=== PATIENT | female | born 1965 | race Caucasian/White ===

== ENCOUNTER 2017-04-17 12:19 | Observation (INO) | payer OTHER ==
[2017-04-17] MEDS ORDERED: GLUCAGON,HUMAN RECOMBINANT 1 MG VIAL ONE (14:08)
[2017-04-17] MEDS ORDERED: IOTHALAMATE MEG (CONRAY) 50 ML VIAL IV ONE (14:08)
--- NOTE | 2017-04-17 14:31 | PDHPUP ---
History & Physical Update H&P update statement: This history and physical update is based on an assessment of the patient which was completed after admission or registration (within 24 hours), but prior to the surgery/procedure.
--- NOTE | 2017-04-17 14:35 | PDANEPAE ---
ANE History of Present Illness 51 yo for ercp ANE Past Medical History - Cardiovascular History Hx Hypertension: Yes Hx Arrhythmias: No Hx Chest Pain: No Hx Coronary Artery / Peripheral Vascular Disease: No Hx CHF / Valvular Disease: No Hx Palpitations: No Cardiovascular History Comment: meds for Hypertension - Pulmonary History Hx COPD: No Hx Asthma/Reactive Airway Disease: No Hx Recent Upper Respiratory Infection: No Hx Oxygen in Use at Home: No Hx Sleep Apnea: Yes Sleep Apnea Screening Result - Last Documented: Positive Pulmonary History Comment: SUDHIR and uses a CPAP - Neurologic History Hx Cerebrovascular Accident: No Hx Seizures: No Hx Dementia: No - Endocrine History Hx Diabetes: Yes - Renal History Hx Renal Disorders: No - Liver History Hx Hepatic Disorders: No - Neurological & Psychiatric Hx Hx Neurological and Psychiatric Disorders: No - Cancer History Hx Cancer: No - Congenital Disorder History Hx Congenital Disorders: No - GI History Hx Gastrointestinal Disorders: Yes Gastrointestinal History Comment: c diff recent with 2 doses of medicine to treat. dilation of esophagus less than 5 years ago. GERD - Other Health History Other Health History: seasonal allergies - Surgical History Prior Surgeries: kidney stone removed 2001 ANE Review of Systems - Exercise capacity METS (RN): 4 METS ANE Patient History - Allergies Allergies/Adverse Reactions: erythromycin base Allergy (Verified 04/17/17 13:52) Vomiting metformin Allergy (Verified 04/17/17 14:19) Vomiting - Home Medications Home medications: home medication list seen and reviewed Home Medications: Aleve 220 MG (*) 2 tab PO DAILY 04/17/17 [Last Taken 04/16/17] Hyzaar 100-25 Tablet 1 tab PO DAILY 04/17/17 [Last Taken 04/15/17] Levothyroxine 75 mcg PO DAILY 04/17/17 [Last Taken 04/14/17] Metoprolol Tartrate 50 mg PO BID 04/17/17 [Last Taken 04/15/17] Multivitamin 1 tab PO DAILY 04/17/17 [Last Taken 04/14/17] Omeprazole 20 mg PO DAILY 04/17/17 [Last Taken 04/14/17] Simvastatin 10 mg PO DAILY 04/17/17 [Last Taken 04/14/17] Trulicity 1.5 mg SQ AD 04/17/17 [Last Taken 04/10/17] Zyrtec 1 tab PO DAILY 04/17/17 [Last Taken 04/14/17] metroNIDAZOLE 1 tab PO TID 04/17/17 [Last Taken 04/17/17 09:00] - NPO status NPO Since - Liquids (Date): 04/17/17 NPO Since - Liquids (Time): 09:00 NPO Since - Solids (Date): 04/17/17 NPO Since - Solids (Time): 09:00 - Smoking Hx Smoking Status: Never smoked - Family Anes Hx Family Hx Anesthesia Complications: none ANE Labs/Vital Signs - Vital Signs Blood Pressure: 122/78 Heart Rate: 81 Respiratory Rate: 14 O2 Sat (%): 92 Height: 5 ft 6 in Weight: 74.843 kg ANE Physical Exam - Airway Neck exam: FROM Mallampati Score: Class 2 Mouth exam: normal dental/mouth exam - Pulmonary Pulmonary: no respiratory distress - Cardiovascular Cardiovascular: regular rate and rhythym ANE Anesthesia Plan Anesthesia Plan: general endotracheal anesthesia
[2017-04-17] MEDS ORDERED: PROPOFOL/EMULSION 500 MG/50 ML BOTTLE IV ONE (14:43)
[2017-04-17] MEDS ORDERED: fentaNYL 100 MCG/2 ML INJ ONE (14:43)
[2017-04-17] MEDS ORDERED: REMIFENTANIL HCL 1 MG VIAL ONE (14:44)
--- NOTE | 2017-04-17 15:22 | POSTOPPROG ---
Post Op Note Date of Operation: 04/17/17 Surgeon: Morteza Coleman Anesthesia: GET(General Endotracheal) Pre-op Diagnosis: Obstructive jaundice Post-op Diagnosis: same Indication: same Procedure: ERCP/spinchterotomy/CBD sweepage Findings: Good drainage of CBD after procedure. No obvious filling defects Inf/Abcess present in the surg proc area at time of surgery?: No EBL: Minimal Complications: No immediate complications Specimen(s): none
[2017-04-17] MEDS ORDERED: fentaNYL 100 MCG/2 ML INJ IVP PRN (15:26)
[2017-04-17] MEDS ORDERED: NALOXONE HCL 0.4 MG/ML INJ IVP PRN (15:26)
[2017-04-17] MEDS ORDERED: ONDANSETRON 4 MG/2 ML VIAL IVP PRN ×2 (15:26→20:17)
[2017-04-17] MEDS ORDERED: LR 1,000 ML IV SCH (15:30)
--- NOTE | 2017-04-17 15:33 | POSTANESTH ---
Post Anesthetic Evaluation Cardiovascular Status: Normal, Stable Respiratory Status: Normal, Stable Level of Consciousness/Mental Status: Can Participate in Eval Pain Control: Adequate, Prn Tx Ordered Nausea/Vomiting Control: Adequate, Prn Tx Ordered
[2017-04-17] MEDS ORDERED: INSULIN REGULAR HUMAN 100 UNIT/ML ONE (16:26)
[2017-04-17] MEDS ORDERED: INSULIN REGULAR HUMAN 100 UNIT/ML SC ONE (16:45)
[2017-04-17] MEDS ORDERED: INDOMETHACIN 50 MG SUPP PR ONE (18:45)
[2017-04-17] MEDS ORDERED: HYDROmorphONE/DILAUDID 1 MG/ML SYR ONE (19:34)
[2017-04-17] MEDS: HYDROmorphONE/DILAUDID 1 MG/ML SYR IVP PRN ×3 (19:49→23:03)
[2017-04-17 19:53] VITALS: RESP 16
[2017-04-17] MEDS ORDERED: ACETAMINOPHEN 325 MG TAB PO PRN (20:17)
[2017-04-17] MEDS ORDERED: ONDANSETRON DISINTEGRATING 4 MG TAB PO PRN (20:17)
[2017-04-17] MEDS ORDERED: D50W 25 GM/50 ML SYR IVP PRN (20:19)
[2017-04-17] MEDS ORDERED: NS 1,000 ML IV ONE (20:20)
[2017-04-17] MEDS ORDERED: NS 1,000 ML IV SCH (20:30)
--- NOTE | 2017-04-17 21:01 | GHP ---
[f rep st] HISTORY AND PHYSICAL DATE OF ADMISSION: 04/17/2017 CHIEF COMPLAINT: Abdominal pain after ERCP. HISTORY OF PRESENT ILLNESS: This is a 51-year-old female who developed several different problems i n the last couple weeks. She returned from a trip to [place] a couple weeks ago and had an upper r espiratory tract infection for which she was given Augmentin. She then developed renita hematuria an d then following that, left flank pain and was diagnosed with a urinary tract infection and then giv en Cipro. At that time, she also underwent CT scanning on 04/12 which did not show any kidney stone s but did show a gallstone in the gallbladder. As of 3 or 4 days ago she complained of diarrhea and then was diagnosed with C. difficile colitis and started on Flagyl. She then developed jaundice. An ultrasound at that time showed a dilated common bile duct. She then saw Dr. Coelman this morning. He scheduled an ERCP this afternoon. This was accomplished and there was no obvious filling defec t but a sphincterotomy and sweeping were done. She then trialed a diet and had severe epigastric pa in an hour ago. This is better now with Dilaudid. She is complaining of some minimal pain. She de nies any nausea or vomiting. No chest pain or shortness of breath. REVIEW OF SYSTEMS: A 10-point review of systems was obtained and was negative. PAST MEDICAL HISTORY: 1. Type 2 diabetes. 2. Hypertension. 3. Previous left kidney stone. 4. Obstructive sleep apnea. 5. Hypothyroidism. MEDICATIONS: Reviewed. FAMILY HISTORY: Lung cancer in her father. Coronary artery disease in her mother. Charlton's ch pito in her paternal grandfather. SOCIAL HISTORY: No smoking or alcohol. PHYSICAL EXAMINATION: VITAL SIGNS: Afebrile, blood pressure is elevated at 188/100, heart rate 74, oxygen saturation is 97% on 2 L. GENERAL: The patient is well developed, no apparent distress. H EENT: Mildly icteric sclerae. Moist mucous membranes. NECK: Supple. No thyromegaly. LUNGS: Go od effort. Clear to auscultation bilaterally. CARDIOVASCULAR: Regular rate and rhythm. No murmur s, gallops. ABDOMEN: Positive bowel sounds. Soft. Mild epigastric tenderness. No rebound or gua rding. EXTREMITIES: No clubbing, cyanosis, or edema. SKIN: Without rash. Warm, dry, intact. GEORGE ROLOGIC: Alert and oriented x3. Moving all 4 extremities equally. PSYCH: Normal mood and affect. LABS: From 2 days ago shows a normal CBC but does show elevated total bilirubin of 6.6 with a conju gated at 5.6. AST 135, ALT 274, alkaline phosphatase elevated at 288. Creatinine is also elevated at 2.5. Glucose is elevated at 362. ASSESSMENT: A 51-year-old female being admitted post endoscopic retrograde cholangiopancreatography (ERCP) to rule out pancreatitis, who also has concomitant Clostridium difficile colitis and acute r enal failure. PLAN: 1. Rule out pancreatitis status post ERCP. Will get some blood work tonight. Will get a lipase to rule out pancreatitis. If this is normal could probably advance her diet tomorrow. 2. Acute renal failure. Will again check creatinine tonight and then again tomorrow. She will be given IV fluids overnight, perhaps with a little bit of a bolus. 3. Clostridium difficile colitis. The patient had been on Flagyl. Will give oral vancomycin while in the hospital. 4. Type 2 diabetes. Will check blood sugars with some sliding scale insulin. 5. Hypertension. I am going to hold her Hyzaar due to her acute renal failure. Continue metoprolo l. 6. Admission: Patient will be admitted under observation status. Case was discussed with Gastroen terologist. Records reviewed and summarized in the HPI. /[id number]/MODL
[2017-04-17] MEDS: VANCOMYCIN 125 MG/2.5 ML UDL PO SCH (21:26)
[2017-04-17 21:45] LABS: % IMMATURE GRANULYOCYTES 0.9 % (0.0-1.1); ABSOLUTE IMMATURE GRANULOCYTES 0.06 10^3/uL (0.00-0.10); ADD DIFF? NO; ADD MORPH? NO; ADD SCAN? NO; ATYPICAL LYMPHOCYTE FLAG 20 (0-99); FRAGMENT RBC FLAG 0 (0-99); HEMATOCRIT 40.5 % (38.0-47.0); HEMOGLOBIN 14.1 g/dL (12.6-16.3); LEFT SHIFT FLG 0 (0-99); LIPEMIA HEMOLYSIS FLAG 90 (0-99); MEAN CELL HEMOGLOBIN 32.5 pg (27.9-34.1); MEAN CELL HEMOGLOBIN CONCENTR. 34.8 g/dL (32.4-36.7); MEAN CELL VOLUME 93.3 fL (81.5-99.8); MEAN PLATELET VOLUME 10.5 fL (8.7-11.7); PLATELET CLUMPS FLAG 0 (0-99); PLATELET COUNT 244 10^3/uL (150-400); RED BLOOD CELL COUNT 4.34 10^6/uL (4.18-5.33); RED CELL DISTRIBUTION WIDTH 12.4 % (11.5-15.2)
[2017-04-17 21:58] LABS: ALANINE AMINOTRANSFERASE 209 IU/L (9-52); ALBUMIN 4.2 g/dL (3.5-5.0); ALKALINE PHOSPHATASE 306 IU/L (38-126); ANION GAP 18 mEq/L (8-16); ASPARTATE AMINOTRANSFERASE 127 IU/L (14-46); BILIRUBIN,TOTAL 6.8 mg/dL (0.1-1.4); CALCIUM 9.9 mg/dL (8.5-10.4); CARBON DIOXIDE 21 mEq/l (22-31); CHLORIDE 101 mEq/L (97-110); CREATININE 1.9 mg/dL (0.6-1.0); GLOMERULAR FILTRATION RATE 28; POTASSIUM 4.3 mEq/L (3.5-5.2); SODIUM 140 mEq/L (134-144); TOTAL PROTEIN 7.2 g/dL (6.3-8.2)
[2017-04-17 22:02] LABS: GLUCOSE 525 mg/dL (70-100)
[2017-04-17 22:16] LABS: BILIRUBIN-CONJUGATED 5.8 mg/dL (0.0-0.5)
[2017-04-17] MEDS: METOPROLOL SUCCINATE XR 50 MG TAB PO SCH (22:34)
[2017-04-17] MEDS ORDERED: INSULIN REGULAR HUMAN 100 UNIT/ML IVP ONE (23:00)
[2017-04-18] MEDS: VANCOMYCIN 125 MG/2.5 ML UDL PO SCH ×2 (05:26→13:00)
[2017-04-18] MEDS ORDERED: LEVOTHYROXINE 75 MCG TAB PO SCH (06:00)
[2017-04-18 06:29] LABS: ALANINE AMINOTRANSFERASE 188 IU/L (9-52); ALBUMIN 3.6 g/dL (3.5-5.0); ALKALINE PHOSPHATASE 261 IU/L (38-126); ANION GAP 14 mEq/L (8-16); ASPARTATE AMINOTRANSFERASE 113 IU/L (14-46); BILIRUBIN,TOTAL 6.3 mg/dL (0.1-1.4); BILIRUBIN-CONJUGATED 5.3 mg/dL (0.0-0.5); CALCIUM 9.1 mg/dL (8.5-10.4); CARBON DIOXIDE 21 mEq/l (22-31); CHLORIDE 108 mEq/L (97-110); CREATININE 1.8 mg/dL (0.6-1.0); GLOMERULAR FILTRATION RATE 29; GLUCOSE 353 mg/dL (70-100); SODIUM 143 mEq/L (134-144); TOTAL PROTEIN 6.4 g/dL (6.3-8.2)
[2017-04-18] MEDS: METOPROLOL SUCCINATE XR 50 MG TAB PO SCH (07:52)
[2017-04-18] MEDS: INSULIN LISPRO 100 UNIT/ML SC SCH ×2 (07:53→13:00)
--- NOTE | 2017-04-18 08:11 | SOAPPROG ---
SOAP Progress Note Assessment/Plan: Assessment: Admitted last night after developing sx suggestive of post-ERCP pancreatitis, although Lipase only minimally abnormal. She feels better this AM and LFTs marginally improved overnight. On Rx for C. diff. Blood sugars very high despite Trulicity therapy. Abdomen soft and non-tender today. I suspect she could go home on a diet advanced as tolerated but will need close follow up with her PCP for the multiple medical issues she has. I will call Dr. Quick to apprise him of her situation. Much thanks to Hospitalist team for their help last night. Plan: 04/18/17 08:08 Objective: Vital Signs Temp Pulse Resp BP Pulse Ox 36.7 C 73 16 152/90 H 97 04/18/17 07:42 04/18/17 07:42 04/18/17 07:42 04/18/17 07:42 04/18/17 07:42 Laboratory Results 04/17/17 21:30 04/18/17 05:50 04/17/17 04/18/17 04/19/17 05:59 05:59 05:59 Intake Total 3450 Output Total 0 Balance 3450 ICD10 Worksheet Patient Problems: Problems Problem Status Onset C. difficile diarrhea Acute ~04/15/17
[2017-04-18] MEDS ORDERED: CETIRIZINE 10 MG TAB PO SCH (09:00)
[2017-04-18] MEDS ORDERED: PANTOPRAZOLE SODIUM 40 MG TAB PO SCH (09:00)
--- NOTE | 2017-04-18 09:33 | GPN ---
[f rep st] PROCEDURE NOTE PROCEDURE PERFORMED: Endoscopic retrograde cholangiopancreatography with sphincterotomy and common bile duct sweepage. INDICATION: The patient is a 51-year-old female who has been having abdominal discomfort and then m ore recently a presentation of jaundice and pruritus. CT scan performed approximately 3 days ago sh owed a choledocholithiasis but no common bile duct abnormality. Ultrasound performed yesterday show ed the stone was known in the gallbladder and the bile duct had dilated to 10 mm. Lab work revealed a significant increase in total bilirubin to 6.6, AST to 134, ALT to 274, alk phos to 288. The con fluence of these findings suggested common bile duct obstruction from a choledocholithiasis. ERCP i s being performed to evaluate and treat. PROCEDURE: After proper consent was obtained, the patient placed under general anesthesia and place d in the swimmer's position. Video duodenoscope was introduced through the mouth, down the esophagus, into the stomach, past the pylorus into the duodenum. These structures appeared normal. The ampulla of Vater was identified. It was not obviously traumatized. A guidewire was placed in the common duct, and then cholangiogram was performed that showed a dilate d common duct approximately 9 mm. No obvious filling defect noted. However, there was no spontaneo us drainage of bile. A sphincterotomy was performed to approximately 10 mm. Using Seldinger technique, I switched over t o a 9-12 mm balloon extractor and swept the common bile duct 3 times, after which a good flow of marina e was noted. I did not see an obvious stone or any debris come out. Final cholangiogram showed no filling defects and good drainage of the common duct. At this point, instruments were removed. The patient tolerated the procedure well. No pancreatic d uct intubation or opacification was performed. The patient was transferred to Recovery in stable condition. RECOMMENDATIONS: The patient will be observed for 4 hours for any post-ERCP complications. If she is doing well, she may go home. Otherwise, I will keep her overnight. The patient will need followup blood work later this week to confirm improvement of LFTs and an offi ce visit to confirm improvement of symptoms. Copy requested to: Dr. Infante /[id number]/MODL
[2017-04-18 15:25] LABS: ANION GAP 11 mEq/L (8-16); CALCIUM 9.2 mg/dL (8.5-10.4); CARBON DIOXIDE 25 mEq/l (22-31); CHLORIDE 109 mEq/L (97-110); CREATININE 1.4 mg/dL (0.6-1.0); GLOMERULAR FILTRATION RATE 39; GLUCOSE 225 mg/dL (70-100); POTASSIUM 3.7 mEq/L (3.5-5.2); SODIUM 145 mEq/L (134-144)
[2017-04-18 15:46] LABS: COLOR YELLOW; LEUKOCYTE ESTERASE,URINE 3+ (NEGATIVE); NITRITE,URINE NEGATIVE (NEGATIVE)
[2017-04-18 15:49] LABS: BACTERIA TRACE /hpf (NONE SEEN); MUCUS TRACE /lpf (NONE-1+); WBC,URINE 50-182 /hpf (0-3)
[2017-04-18 15:58] VITALS: BP 135/73; PULSE 84; TEMP 98.4; O2SAT 93
[2017-04-18] MEDS ORDERED: INSULIN REGULAR HUMAN 100 UNIT/ML SC ONE (16:15)
--- NOTE | 2017-04-19 14:57 | GDS ---
[f rep st] DISCHARGE SUMMARY SERVICE: [facility] Hospitalist CONSULTATIONS: Gastroenterology, Dr. Coleman. PROCEDURE: None. HISTORY AND PHYSICAL: Please see previously dictated note by Dr. Reid. ADMISSION DIAGNOSES: 1. Abdominal pain, status post ERCP. 2. Acute renal insufficiency. 3. History of Clostridium difficile colitis. 4. Type 2 diabetes. 5. Hypertension. DISCHARGE DIAGNOSES: 1. Abdominal pain, status post ERCP, improved. 2. Acute renal insufficiency, improved. 3. History of Clostridium difficile colitis, asymptomatic. 4. Type 2 diabetes. 5. Hypertension. HOSPITAL COURSE: 1. Abdominal pain, status post ERCP. Dr. Coleman did an outpatient ERCP on the patient on the day of admission, and she had significant pain postprocedure and was thought to have pancreatitis. She w as admitted to the hospital for overnight observation, IV fluids and pain control. Repeat laboratori es were reassuring, and on the day of discharge she was able to tolerate a clear diet, which advance d without difficulty. Dr. Coleman saw her on the day of discharge and agreed with discharge and follo w up as an outpatient. 2. Acute renal insufficiency: She was noted to have a creatinine of 2.5 from a baseline of 0.7. She was given IV hydration overnight, and at the time of discharge her creatinine was 1.4. As she was t olerating a diet well and taking fluids well, I decided it was okay to send her home to continue wit h oral hydration and do a quick follow up with her PCP in 1 to 2 days ([facility]). If at any time she notes raising blood sugars, decreased urine output, worsening abdominal pain, she was instructed to return immediately for re-evaluation. 3. Type 2 diabetes: She was noted to have several elevated blood sugars throughout her stay, whitneye r, after vigorous IV rehydration her blood sugars came down nicely. She should continue with her [facility] onic medications, and she does have a blood glucose monitor at home. If she notes blood sugars consi stently greater than 250, she has been asked to call her primary care physician immediately. 4. Hypertension: She is chronically on Hyzaar and metoprolol. Hyzaar was held because of her acute renal insufficiency. Blood pressures were slightly elevated, with only metoprolol as monotherapy, bu t due to her insufficiency the Hyzaar will continue to be held. She should review with her primary c are provider in the next 1 to 2 days whether it is safe to restart the Hyzaar. Of note, she does silvino e naproxen as an outpatient according to her home med list. She was instructed to not take naproxen of ibuprofen either, because of her renal insufficiency. 5. Clostridium difficile colitis: She was diagnosed on the with positive C difficile. She had been started on Flagyl as an outpatient, but this was changed to vancomycin p.o. on admission. She h as not had any diarrheal symptoms. She remained on isolation throughout her stay per protocol. She i s discharged home to restart Flagyl as previously instructed. DISCHARGE MEDICATIONS: Please see scanned discharge list, but in general no change to her chronic m edications was made other than holding Hyzaar, as noted above. DISCHARGE INSTRUCTIONS: If at any time she has recurrent abdominal pain, nausea, vomiting, inabilit y to tolerate oral hydration, fever or significantly elevated hyperglycemia, she has been instructed to return immediately to the emergency department for evaluation. Otherwise, she should follow up w ith either Dr. Clement, her PCP, or one of her partners in the clinic Saturday for a repeat BMP, and discussion about when to restart Hyzaar. She has also been instructed to follow up with Dr. Coleman of [facility] within a week. /[id number]/MODL
== END 2017-04-18 18:27 | disposition home or self-care (01) ==
LOC: FSGY 12:19 → F1N 19:03
PROVIDERS: ADMIT Internal Medicine; ATTEND Family Medicine
PROC: 0FC98ZZ Extirpation of Matter from Common Bile Duct, Via Natural or Artificial Opening Endoscopic (ICD-10-PCS; principal; 2017-04-17 13:30)
PROC: BF131ZZ Fluoroscopy of Gallbladder and Bile Ducts using Low Osmolar Contrast (ICD-10-PCS; principal; 2017-04-17 13:30)
DX: K80.51 Calculus of bile duct without cholangitis or cholecystitis with obstruction (principal); G89.18 Other acute postprocedural pain; A04.7 Enterocolitis due to Clostridium difficile; N17.9 Acute kidney failure, unspecified; E11.9 Type 2 diabetes mellitus without complications; I10 Essential (primary) hypertension; G47.33 Obstructive sleep apnea (adult) (pediatric); K21.9 Gastro-esophageal reflux disease without esophagitis; E03.9 Hypothyroidism, unspecified
CPT/HCPCS: 43275; 76001; G0378; J1170; J1610; J1815; J2704; J3010; Q9961

== ENCOUNTER 2019-01-26 11:09 | Day surgery (SDC) | payer MEDICAID ==
[2019-01-26] MEDS ORDERED: ceFAZolin 2 GM/DEXTROSE 100 ML IV ONE (11:47)
[2019-01-26] MEDS ORDERED: BUPIVACAINE 0.5% 30 ML SDV ONE (12:54)
[2019-01-26] MEDS ORDERED: MIDAZOLAM 2 MG/2 ML VIAL IVP ONE (12:55)
[2019-01-26] MEDS ORDERED: ceFAZolin 1 GM/5 ML SYR ONE (12:55)
[2019-01-26] MEDS ORDERED: LR 1,000 ML IV ONE (12:56)
--- NOTE | 2019-01-26 12:56 | PDANEPAE ---
ANE Past Medical History - Cardiovascular History Hx Hypertension: Yes Hx Arrhythmias: No Hx Chest Pain: No Hx Coronary Artery / Peripheral Vascular Disease: No Hx CHF / Valvular Disease: No Hx Palpitations: No Cardiovascular History Comment: meds for Hypertension - Pulmonary History Hx COPD: No Hx Asthma/Reactive Airway Disease: No Hx Recent Upper Respiratory Infection: No Hx Oxygen in Use at Home: No Hx Sleep Apnea: Yes Sleep Apnea Screening Result - Last Documented: Positive Pulmonary History Comment: SUDHIR and uses a CPAP - Neurologic History Hx Cerebrovascular Accident: No Hx Seizures: No Hx Dementia: No - Endocrine History Hx Diabetes: Yes Endocrine History Comment: Type 2 diabetes,. hypothyroidism - Renal History Hx Renal Disorders: Yes Renal History Comment: kidney stone one time - Liver History Hx Hepatic Disorders: No - Neurological & Psychiatric Hx Hx Neurological and Psychiatric Disorders: No - Cancer History Hx Cancer: No - Congenital Disorder History Hx Congenital Disorders: No - GI History Hx Gastrointestinal Disorders: Yes Gastrointestinal History Comment: ERCP 2016, c diff 2017 with 2 doses of medicine to treat. dilation of esophagus less than 5 years ago. GERD, one gall stone passed on its own - Other Health History Other Health History: seasonal allergies - Chronic Pain History Chronic Pain: No (left plantar fascitis) - Surgical History Prior Surgeries: kidney stone removed 2001, ERCP 2016 ANE Review of Systems Review of Systems: - Exercise capacity METS (RN): 5 METS ANE Patient History - Allergies Allergies/Adverse Reactions: erythromycin base Allergy (Verified 01/21/19 10:43) Vomiting metformin Allergy (Verified 01/26/19 12:37) Vomiting - Home Medications Home medications: home medication list seen and reviewed Home Medications: Cetirizine [ZyrTEC 10 mg (*)] DAILY 04/17/17 [Last Taken 01/25/19 21:00] Levothyroxine Sodium DAILY06 04/17/17 [Last Taken 01/26/19 09:00] Metoprolol Succinate Xr [Toprol Xl 50 mg (*)] BID 04/17/17 [Last Taken 01/26/19 09:00] Multivitamins [Multivitamin (*)] DAILY 04/17/17 [Last Taken 01/22/19] Omeprazole Magnesium [Prilosec Otc] DAILY 04/17/17 [Last Taken 04/14/17] Simvastatin [Zocor] DAILY 04/17/17 [Last Taken 01/25/19 21:00] Ibuprofen 01/21/19 [Last Taken 01/18/19] metFORMIN SR 01/21/19 [Last Taken 01/25/19 21:00] - NPO status NPO Status: no food or drink >8 hours NPO Since - Liquids (Date): 01/25/19 NPO Since - Liquids (Time): 21:00 NPO Since - Solids (Date): 01/25/19 NPO Since - Solids (Time): 21:00 - Smoking Hx Smoking Status: Never smoked - Family Anes Hx Family Hx Anesthesia Complications: none ANE Labs/Vital Signs - Vital Signs Blood Pressure: 170/95 Heart Rate: 58 Respiratory Rate: 16 O2 Sat (%): 97 Height: 167.64 cm Weight: 77.111 kg ANE Physical Exam - Airway Neck exam: FROM Mallampati Score: Class 2 Mouth exam: normal dental/mouth exam - Pulmonary Pulmonary: clear to auscultation - Cardiovascular Cardiovascular: regular rate and rhythym - ASA Status ASA Status: II ANE Anesthesia Plan Anesthesia Plan: MAC
[2019-01-26] MEDS ORDERED: LIDOCAINE 2% 100 MG/5 ML SYR ONE (12:57)
--- NOTE | 2019-01-26 12:59 | PDHPUP ---
History & Physical Update H&P update statement: This history and physical update is based on an assessment of the patient which was completed after admission or registration (within 24 hours), but prior to the surgery/procedure. H&P update: H&P reviewed & patient examined, no change in patient's condition since H&P completed
[2019-01-26] MEDS ORDERED: PROPOFOL 200 MG/20 ML VIAL ONE (13:13)
[2019-01-26] MEDS ORDERED: fentaNYL 100 MCG/2 ML INJ ONE (13:13)
[2019-01-26] MEDS ORDERED: PROPOFOL/EMULSION 500 MG/50 ML BOTTLE IV ONE (13:14)
[2019-01-26] MEDS ORDERED: PHENYLEPHRINE 0.5% NASAL 15 ML SPRAY ONE (13:39)
[2019-01-26] MEDS ORDERED: ALBUTEROL 3 ML DEYVIAL IH PRN (14:27)
[2019-01-26] MEDS ORDERED: oxyCODONE IR 5 MG TAB PO PRN (14:27)
[2019-01-26] MEDS ORDERED: PROMETHAZINE HCL 25 MG/ML INJ IVP PRN (14:27)
[2019-01-26] MEDS ORDERED: HYDROmorphONE/DILAUDID 1 MG/ML INJ IVP PRN (14:27)
[2019-01-26] MEDS ORDERED: LR 500 ML IV PRN (14:27)
[2019-01-26] MEDS ORDERED: ACETAMINOPHEN 500 MG TAB PO PRN (14:27)
[2019-01-26] MEDS ORDERED: METOCLOPRAMIDE 10 MG/2 ML VIAL IVP PRN (14:27)
[2019-01-26] MEDS ORDERED: NALOXONE HCL 0.4 MG/ML INJ IVP PRN (14:27)
[2019-01-26] MEDS ORDERED: fentaNYL 100 MCG/2 ML INJ IVP PRN (14:27)
[2019-01-26] MEDS ORDERED: ONDANSETRON 4 MG/2 ML VIAL IVP PRN (14:27)
[2019-01-26] MEDS ORDERED: HYDROCODONE/APAP 5/325 TAB PO PRN (14:27)
[2019-01-26] MEDS ORDERED: hydrALAZINE 20 MG/ML VIAL ONE (15:09)
[2019-01-26] MEDS ORDERED: OXYCODONE/APAP 5/325 TAB PO PRN (15:27)
--- NOTE | 2019-01-26 15:33 | POSTOPPROG ---
Post Op Note Date of Operation: 01/26/19 Surgeon: Kristin Richardson Time Recorder: None Anesthesiologist: Dr. Baez Anesthesia: IV Sedation (30cc 0.5% Marcaine plain.) Pre-op Diagnosis: Right HAV, Lisfranc ligament disruption Post-op Diagnosis: Right HAV, Lisfranc ligament disruption Indication: Right HAV, Lisfranc ligament disruption Procedure: Right Bunionectomy, Lisfranc ligament repair Inf/Abcess present in the surg proc area at time of surgery?: No Depth: Deep Incisional (Fascial) EBL: 50-100 Complications: Difficulty with hemostasis. Let tourniquet down after 10 minutes and bleeding decreased. Remainder of procedure done without tourniquet. Clean Closure Performed: Yes
--- NOTE | 2019-01-26 15:42 | POSTANESTH ---
Post Anesthetic Evaluation Cardiovascular Status: Normal, Stable Respiratory Status: Normal, Stable Level of Consciousness/Mental Status: Can Participate in Eval Pain Control: Adequate, Prn Tx Ordered Nausea/Vomiting Control: Adequate, Prn Tx Ordered Complications Possibly Related to Anesthesia: None Noted
[2019-01-26 17:28] VITALS: BP 147/94
--- NOTE | 2019-01-27 03:12 | GOP ---
[f rep st] OPERATIVE REPORT DATE OF OPERATION: 01/26/2019 SURGEON: Kristin Richardson DPM ANESTHESIA: Local with monitored anesthesia care. ANESTHESIOLOGIST: Dr. Baez. PREOPERATIVE DIAGNOSIS: 1. Right foot Lisfranc ligament disruption. 2. Right foot hallux abductovalgus deformity. POSTOPERATIVE DIAGNOSIS: 1. Right foot Lisfranc ligament disruption. 2. Right foot hallux abductovalgus deformity. PROCEDURE PERFORMED: 1. Right Lisfranc ligament repair. 2. Right foot modified Price/chevron bunionectomy. FINDINGS: ESTIMATED BLOOD LOSS: Between 50 and 100 cc. DESCRIPTION OF PROCEDURE: Under mild sedation, the patient was brought into the operating room, [facility] ed on the operating table in supine position. Following IV sedation, local anesthesia was obtained a bout the right foot using 20 cc of 0.5% Marcaine plain. The foot was then scrubbed, prepped, and elaine ped in the usual aseptic manner. A sterile pneumatic ankle tourniquet was placed about the right ank le. The foot was exsanguinated and tourniquet inflated to 225 mmHg. Attention was then directed to the 1st metatarsophalangeal joint where an incision was made medial and parallel to the tendon of the extensor hallucis longus. The incision was deepened through subcutaneous tissue with care taken to identify and retract all vital neurovascular structures. All bleeders were cauterized as necessary. There was significant difficulty obtaining hemostasis as her veins became engorged and excessive ooz ing occurred. Electrocautery was used to maintain hemostasis. However, after attempt at decreasing her bleeding, it was decided to put the tourniquet down as she was developing a venous tourniquet. H er blood pressure was elevated and managed by Anesthesia. Once the tourniquet was down, the oozing d id decrease and it was decided to perform the remainder of the procedure without use of the tournique t. Once hemostasis was obtained, a linear incision was made through the 1st metatarsophalangeal join t capsule. The periosteum and capsule were reflected medially and laterally to expose the 1st metata rsal head at the operative site. The medial eminence was resected utilizing an oscillating bone saw. At this point, a chevron osteotomy was then performed with arms pointed dorsal proximal and plantar proximal from the 1st metatarsal head. The 1st metatarsal head was then shifted laterally and impac alfredo upon the remaining 1st metatarsal shaft. It was temporarily fixated with 2 K-wires. Following s blane AO principles and techniques, 2 Arthrex 3.5 headless screws were placed across the osteotomy site with excellent compression noted. The K-wires were removed. The remaining medial bone shelf wa s resected utilizing an oscillating bone saw. All rough edges were smoothed with a bur. The wound w as irrigated with copious sterile saline Ancef irrigation. The periosteum and capsule were repaired with 3-0 and 2-0 Vicryl. The subcuticular layer was repaired with 4-0 Monocryl and the skin with 4-0 Prolene in a running subcuticular suture technique. Attention was then directed to the Lisfranc ligament disruption. An incision was made lateral to the base of the 2nd metatarsal. This was done under fluoroscopy. The K-wire was then inserted from lat eral 2nd metatarsal into the medial cuneiform. This was evaluated under fluoroscopy on AP and latera l views. The position was changed to slightly further distal on the medial cuneiform. There was dif ficulty getting the 2nd metatarsal K-wire perfectly lateral on the metatarsal due to the close proxim ity of the 3rd metatarsal. The K-wire was placed slightly dorsal, but found to be in a good position . This was evaluated under fluoroscopy. The medial cuneiform was then drilled. The anchor and sutu re were then passed through the suture passer through the 2nd metatarsal and into the medial cuneifor m. This was tightened with a tenaculum, and the anchor placed into the medial cuneiform. The suture was then cut. The wounds were irrigated with copious sterile saline Ancef irrigation. They were cl osed with 3-0 Vicryl, 4-0 Monocryl, and 4-0 Prolene in horizontal suture technique. The incisions we re dressed with Mastisol, Steri-Strips, Xeroform, 4 x 4 gauze, Mamta, cast padding, posterior splint, and Brian wrap. Tourniquet was deflated at the 10-minute shiela at the beginning of surgery due to a ve nous tourniquet. The patient was then transferred to the recovery room with vital signs stable and vascular status int act. Following a period of postoperative monitoring, the patient will be discharged home, advised to ice and elevate her foot. She is advised to keep the dressing clean, dry, and intact. She will fol low up with me in the next week for wound check and dressing change. She is nonweightbearing on her foot for the next few weeks. INJECTABLES: 30 cc of 0.5% Marcaine plain. MATERIALS: 1. Arthrex 3.5 x 14 mm and 3.5 x 16 mm headless screws across the 1st metatarsal. 2. For the Lisfranc repair, a 2nd metatarsal titanium oblong 6.5 button with 2 mm FiberTape; in the medial cuneiform, 4.75 mm PEEK SwiveLock anchor with 2 mm FiberTape. HEMOSTASIS: Pneumatic ankle tourniquet at 225 mmHg for 1 minute. It was then deflated and re-exsang uinated, and tourniquet inflated to 250 mmHg for 9 minutes. The patient developed a venous tournique t, and the tourniquet was deflated for the remainder of the procedure as she was bleeding less with t he tourniquet down. /[id number]
== END 2019-01-26 17:25 | disposition home or self-care (01) ==
LOC: FSGY 11:09
PROVIDERS: ATTEND Podiatrist Foot & Ankle Surgery
DX: M20.11 Hallux valgus (acquired), right foot (principal); S93.324A Dislocation of tarsometatarsal joint of right foot, initial encounter; W01.0XXA Fall on same level from slipping, tripping and stumbling without subsequent striking against object, initial encounter; M72.2 Plantar fascial fibromatosis; E11.9 Type 2 diabetes mellitus without complications
CPT/HCPCS: C1713; J0360; J0690; J2001; J2250; J2704; J3010